=== PATIENT | female | born 1995 | race Caucasian/White ===

== ENCOUNTER 2022-01-28 17:28 | Emergency (ER) | payer OTHER ==
[2022-01-28 18:05] VITALS: BP 107/67; PULSE 61; RESP 18; TEMP 98.9; BMI 25.6
[2022-01-28] MEDS ORDERED: DICLOFENAC SODIUM 75 MG TABLET.DR PO ONE (18:21)
[2022-01-28] MEDS ORDERED: NAPROXEN 375 MG TABLET PO ONE (18:24)
[2022-01-28] MEDS ORDERED: NAPROXEN 375 MG TABLET ONE (18:24)
== END 2022-01-28 18:47 | disposition home or self-care (01) ==
LOC: FER 17:28
DX: B34.9 Viral infection, unspecified (principal)
CPT/HCPCS: 0241U-QW; 99283-25